=== PATIENT | female | born 1975 | race Caucasian/White ===

== ENCOUNTER → 2017-07-07 | Outpatient (CLI) | payer OTHER ==
--- NOTE | 2017-07-07 12:58 | Diagnostic Imaging Report ---
EXAM: Thyroid Ultrasound INDICATION: \[id number] \[id number] \S\RIGHT THYROID NODULE COMPARISON: Thyroid ultrasound dated 04/09/2016 TECHNIQUE: Transverse and sagittal images were obtained of the thyroid gland. FINDINGS: Thyroid gland: Size: Right lobe 4.7 x 1.1 x 1.4 cm, Normal in size Left lobe 4.3 x 0.8 x 1.2 cm, Normal in size Isthmus 0.2 cm, Normal in size Appearance: Homogeneous echotexture without increased vascularity Masses/Nodules: Right thyroid lobe: 1.5 x 0.9 x 1.1 cm midpole solid nodule with small cystic component, previously 1.4 x 1.2 x 1.3 cm. This nodule has been biopsied. 1.3 x 0.7 x 0.9 cm mid/superior pole predominantly solid isoechoic nodule, previously 0.9 x 0.5 x 0.7 cm. Left thyroid lobe: 0.4 x 0.2 x 0.3 cm lateral midpole nodule colloid cyst. 0.4 x 0.2 x 0.3 cm medial superior pole cystic nodule with septation . Parathyroid: No focal parathyroid masses. IMPRESSION: Not significantly changed right thyroid lobe nodules, considering differences in measurement techniques. The largest nodule have been biopsied. Signed by: Dr. Jad Bhatia MD on 07/07/2017 12:54 PM
== END ==
LOC: US 10:28
PROVIDERS: ATTEND Family Medicine
DX: E04.1 Nontoxic single thyroid nodule (principal)
CPT/HCPCS: 76536

== ENCOUNTER → 2018-07-06 | Outpatient (CLI) | payer OTHER ==
--- NOTE | 2018-07-06 14:49 | Diagnostic Imaging Report ---
EXAMINATION: Thyroid ultrasound. CLINICAL HISTORY: Right thyroid nodule COMPARISON: 07/07/2017. DISCUSSION: Transverse and longitudinal images of the thyroid were obtained utilizing grayscale and color Doppler modalities. The right thyroid lobe measures 4.5 x 1.3 x 1.8 cm and shows normal echogenicity. Interpolar solid nodule with small cystic component measures 1.5 x 1.2 x 1.1 cm (previously 1.5 x 0.9 x 1.1 cm) and has been sampled percutaneously. A second, smaller nodule also in the interpolar region measures 1 x 0.6 x 0.6 cm (previously 1.3 x 0.7 x 0.9 cm). The left thyroid lobe measures 3.9 x 1 x 1.4 cm and shows normal echogenicity. 4 mm colloid cyst. 4 mm lower pole nodule. The thyroid isthmus measures 0.2 cm and shows normal echogenicity. No nodules are seen. There is no adenopathy. IMPRESSION: When accounting for differences in technique, stable right thyroid nodules. As previously discussed, the larger of the 2 nodules has been previously percutaneously sampled and correlation with pathology results is suggested. Signed by: Dr. Yaniv Scott M.D. on 07/06/2018 2:46 PM
== END ==
LOC: US 10:27
PROVIDERS: ATTEND Family Medicine
DX: E04.1 Nontoxic single thyroid nodule (principal)
CPT/HCPCS: 76536